=== PATIENT | male | born 1980 | race Caucasian/White ===

== ENCOUNTER 2017-12-11 18:57 | Emergency (ER) | payer OTHER ==
[~2017-12-11] VITALS: Ht 182.9 cm; Wt 78.7 kg
[~2017-12-11 18:57] MED LIST: ADVIL200 MG PO; TYLENOL EXTRA500 MG PO
[2017-12-11] MEDS ORDERED: NORCO 5/3251 TABLET PO (21:55)
[2017-12-11] MEDS ORDERED: CILOXAN 0.1 APPLICAT LEFT EYE (21:55)
[2017-12-11 22:14] VITALS: BP 120/79
== END 2017-12-11 22:16 | disposition home or self-care (01) ==
LOC: EME 18:57
DX: T15.02XA Foreign body in cornea, left eye, initial encounter (principal); W22.8XXA Striking against or struck by other objects, initial encounter; Y99.0 Civilian activity done for income or pay; Z23 Encounter for immunization
CPT/HCPCS: 99281; 99284